=== PATIENT | male | born 1975 ===

== ENCOUNTER 2022-02-28 14:43 | Emergency (ER) | payer SELFPAY ==
[2022-02-28 14:44] VITALS: BP 112/69; PULSE 94; RESP 16; TEMP 36.7; O2SAT 100
--- NOTE | 2022-02-28 15:25 | NUR.NOTE ---
Nursing Note: UNABLE TO ATTAIN iv ACCESS D/T MULTIPLE OPEN AREAS ON BUE AND EXCESSIVE IV DRUG USE, UNABLE TO OBTAIN BLOOD, PROVIDER AWARE.
--- NOTE | 2022-02-28 15:34 | W.ED.GENAD ---
Discharge Plan Disposition Patient Disposition: HOME Condition: Good Discharge Details Clinical Impression: Skin lesion, Current drug use Primary Care Provider: Unknown,Unknown ED Provider: Prince Tomlinson Discharge Instructions Additional Instructions: At this time the lesions on your arms are secondary to recurrent drug injection use. This eventually leads to necrosis of the skin if the drugs are cut with irritants like cement, or other things. Please apply triple antibiotic ointment daily, and change your dressings every day. Please do not inject anything into your arms at this time there is no active infection, so there is no need for antibiotics currently, however if you do continue to inject, or you notice any redness, drainage, warmth, fever, then this may represent infection and you may need antibiotics then. Please return for reevaluation if this occurs. For these lesions to get better you will need to see a media reconciliation specialist. If you are in the residential system, please utilize the resources for continued wound care. If you are out of the residential system please contact us immediately and we can help facilitate additional wound care referrals for you. If you notice any worsening of your symptoms, or any new symptoms such as vomiting, diarrhea, fever, chills, shortness of breath, chest pain, numbness, weakness, or fainting , please return immediately to the emergency department for reevaluation. Please follow up with your primary care provider as soon as possible for reassessment and reevaluation. As always, it was a pleasure participating in your medical care today. . Medical Decision Making This is a 47-year-old male with a past medical history of IV drug use who recently just moved up to this area who presents in police custody after a drug bust for evaluation of his arms. Patient states that for the last 5 to 6 months he has had large lesions on the medial aspect of his arms bilaterally. These are the areas where he injects. He states that he injects cocaine and heroin regularly, he is unsure as to what it is with. He denies fever or chills. He denies chest pain or shortness of breath. He denies numbness tingling or weakness. He denies vomiting or diarrhea. He denies any drainage. He has not sought help or assistance for these. He has not stopped utilizing drugs through injections. No other complaints at this time. No other modifying factors. Exam demonstrates notable ulcerations of the skin measuring 18 cm in length and 8 cm in width on each forearm. There is also notable pock marking with about 50 lesions on each arm where the patient has self injected subcutaneously. No evidence of acute redness or active cellulitis. No purulent drainage. No evidence of abscess. Negative Nikolsky sign. No large vesicles or bulla. No palpable purpura. No oral lesions. No mucosal lesions. No evidence of severe cellulitis. No evidence of vaccine preventable rash. No black eschar. Symptoms are consistent. Chronic with skin break back secondary to down multiple injections likely secondary to injecting a cytotoxic agent into the skin. There is no evidence of infection. Symptoms inconsistent with leprosy, anthrax, abscess, or active cellulitis. Patient will need chronic wound care for management of these. We did attempt to put triple antibiotic ointment on, and bandage the area but the patient refused any dressings and did not want any additional care. Case management will evaluate for the opportunity for outpatient wound care for the patient. Patient otherwise is stable with no evidence of tachycardia, hypotension, fever, tachypnea, or evidence of active infection bacteremia or sepsis. Patient stable for discharge with recommendations for continued outpatient wound care management. I have extensively reviewed the treatment plan and discharge instructions with the patient. I have addressed all patient concerns at this time. The patient was made aware of what symptoms to monitor for that would warrant a return to the emergency department. Discussed the plan with the patient, they demonstrate verbal understanding and agreement with our assessment and plan at this time. The documentation in this chart was dictated using [employer] dictation software. Please excuse any dictation errors. HPI General Date/Time Provider Initiated Documentation: 02/28/22 14:54. HPI Narrative: This is a 47-year-old male with a past medical history of IV drug use who recently just moved up to this area who presents in police custody after a drug bust for evaluation of his arms. Patient states that for the last 5 to 6 months he has had large lesions on the medial aspect of his arms bilaterally. These are the areas where he injects. He states that he injects cocaine and heroin regularly, he is unsure as to what it is with. He denies fever or chills. He denies chest pain or shortness of breath. He denies numbness tingling or weakness. He denies vomiting or diarrhea. He denies any drainage. He has not sought help or assistance for these. He has not stopped utilizing drugs through injections. No other complaints at this time. No other modifying factors. General Stated Complaint: Cellulitis LIZETTE: 3 Review of Systems All systems reviewed & are unremarkable except as noted in HPI and below PFSH All Active Problems Skin lesion (Acute) Current drug use (Acute) Social History Smoking/Tobacco Use Status: Current every day Tobacco Type: cigarettes Smoking risk assessment performed?: Yes Alcohol Intake: never Drug use: Daily Substance use type: crack/cocaine, heroin and IV drugs Do you feel safe at home: Yes Exam Narrative Exam Narrative: 1.Const: Well-nourished, Well-developed, appearing stated age 2.Eyes: PERRL, no conjunctival injection, and symmetrical lids. 3.ENT: Atraumatic external nose and ears. Moist MM. Neck: Symmetric, trachea midline, No thyromegaly. 4.CVS: +S1/S2, No murmurs or gallops. Peripheral pulses 2+ and equal in all extremities. Brisk capillary refill in all extremities. 5.RESP: Unlabored respiratory effort. Clear to auscultation bilaterally. No wheezes rales or rhonchi 6.GI: Soft, Nontender/Nondistended, No hepatosplenomegaly. No guarding or rebound. 7.MSK: Normocephalic/Atraumatic, Extremities w/o deformity or ttp No cyanosis or clubbing, Normal movement of all extremities. Patient has notable ulcerations of the skin measuring 18 cm in length and 8 cm in width on each forearm. There is also notable pock marking with about 50 lesions on each arm where the patient has self injected subcutaneously. No evidence of acute redness or active cellulitis. No purulent drainage. No evidence of abscess. Negative Nikolsky sign. No large vesicles or bulla. No palpable purpura. No oral lesions. No mucosal lesions. No evidence of severe cellulitis. No evidence of vaccine preventable rash. No black eschar. 8.Skin: Please see musculoskeletal 9.Neuro: strain technician II-XII grossly intact. Sensation grossly intact, no focal neurologic deficits. 10.Psych: (AAO) x3. Appropriate mood and affect Course Vital Signs Vital signs: Vital Signs Temperature 36.7 C 02/28/22 14:44 Pulse 94 H 02/28/22 14:44 Respiratory Rate 16 02/28/22 14:44 Blood Pressure 112/69 02/28/22 14:44 Pulse Oximetry 100 02/28/22 14:44 Temperature 36.7 C 02/28/22 14:44 Temperature Source Temporal Artery Scan 02/28/22 14:44 Pulse 94 H 02/28/22 14:44 Respiratory Rate 16 02/28/22 14:44 Blood Pressure 112/69 02/28/22 14:44 Blood Pressure Position Sitting 02/28/22 14:44 Pulse Oximetry 100 02/28/22 14:44 Oxygen Delivery Method Room Air 02/28/22 14:44 Oxygen Flow Rate 0 02/28/22 14:44 Lab/Test Results Lab/Test Results: 02/28/22 15:09 Blood Blood Culture - Pending 02/28/22 15:09 Blood Blood Culture - Pending
== END 2022-02-28 15:54 | disposition home or self-care (01) ==
LOC: ER 16:52
PROVIDERS: Emergency Provider Student in an Organized Health Care Education/Training Program
DX: L98.9 Disorder of the skin and subcutaneous tissue, unspecified (principal); F19.90 Other psychoactive substance use, unspecified, uncomplicated; F17.210 Nicotine dependence, cigarettes, uncomplicated
CPT/HCPCS: 80053; 87040; 99281; 85025; 99282